=== PATIENT | female | born 1980 | race Two or more races ===

== ENCOUNTER 2018-04-16 19:02 | Emergency (ER) | payer BC, OTHER ==
--- NOTE | 2018-04-16 19:19 | Emergency Department Record ---
History of Present Illness - General Chief Complaint: Laceration(s) Stated Complaint: LAC RT WRIST Time Seen by Provider: 04/16/18 19:13 Source: Patient Mode of Arrival: Ambulatory Limitations: No limitations - History of Present Illness Initial Commments: 37 yo female presents with laceration to the ulnar side of the right wrist. She was washing dishes and a coffee cup broke lacerating the ulnar side of the wrist. No weakness, numbness or tingling. She is able to fully go through a ROM with the fingers. Tetanus is up to date. No visible FB. -: Minutes(s) (15) Extremity Location: Right: Wrist Place: Home Context: Accidental Associated Symptoms: None Treatments Prior to Arrival: Bandage - [place] Coma Scale Eye Response: (4) Open spontaneously Motor Response: (6) Obeys commands Verbal Response: (5) Oriented [place] Total: 15 - Related Data Hx Tetanus Toxoid Vaccination: Yes Year of Tetanus Vaccination: 2013 Home Medications Medication Instructions Recorded Confirmed Last Taken Alprazolam [Xanax] 0.5 mg PO Q8H PRN 04/16/18 04/16/18 Unknown Lorazepam [Ativan] 0.5 mg PO Q8H PRN 04/16/18 04/16/18 Unknown Previous Rx's Medication Instructions Recorded Cephalexin [Keflex] 500 mg PO TID #21 cap 04/16/18 Allergies Allergy/AdvReac Type Severity Reaction Status Date / Time Penicillins Allergy HIVES Verified 06/16/15 16:04 shrimp Allergy HIVES Verified 04/16/18 19:13 Review of Systems Constitutional: Denies: Chills, Fever, Malaise Eyes: Denies: Eye discharge ENT: Denies: Congestion, Throat pain Respiratory: Denies: Cough Cardiovascular: Denies: Chest pain, Palpitations, Syncope Endocrine: Denies: Fatigue Gastrointestinal: Denies: Abdominal pain, Diarrhea, Nausea, Vomiting Genitourinary: Denies: Dysuria Musculoskeletal: Denies: Arthralgia, Back pain, Joint swelling, Myalgia Skin: Reports: Other. Denies: Bruising, Change in color Neurological: Denies: Confusion, Headache Psychiatric: Denies: Anxiety Hematological/Lymphatic: Denies: Blood Clots, Easy bleeding, Easy bruising, Swollen glands Past Medical History - SOCIAL HISTORY Smoking Status: Never smoker - RESPIRATORY Hx Respiratory Disorders: No - CARDIOVASCULAR Hx Cardio Disorders: No - NEURO Hx Neuro Disorders: No - GI Hx GI Disorders: No - Hx Genitourinary Disorders: No - ENDOCRINE Hx Endocrine Disorders: No - MUSCULOSKELETAL Hx Musculoskeletal Disorders: No - PSYCH Hx Psych Problems: Yes Hx Depression: Yes - HEMATOLOGY/ONCOLOGY Hx Hematology/Oncology Disorders: Yes Hx Anemia: Yes Hx Cancer: (Pre cancerous cervical cells) Family Medical History Hx Heart Disease: Grandparents Hx Stroke: Grandparents Physical Exam - General General Appearance: Alert, Oriented x3, Cooperative, No acute distress Limitations: No limitations - Head Head exam: Atraumatic, Normal inspection - Eye Eye exam: Normal appearance, PERRL. negative: Conjunctival injection, Scleral icterus - ENT ENT exam: Normal exam Ear exam: Normal external inspection Nasal Exam: Normal inspection Mouth exam: Normal external inspection - Neck Neck exam: Normal inspection - Respiratory Respiratory exam: Normal lung sounds bilaterally. negative: Respiratory distress - Cardiovascular Cardiovascular Exam: Regular rate, Normal rhythm, Normal heart sounds Peripheral Pulses: 2+: Radial (R) - Extremities Extremities exam: Full ROM, Normal capillary refill. negative: Normal inspection, Tenderness Image of Hand: 1 - 2cm laceration, no visible FB, clean - Neurological Neurological exam: Alert, Oriented X3. negative: Motor sensory deficit - Psychiatric Psychiatric exam: Normal affect, Normal mood - Skin Skin exam: Dry, Intact, Normal color, Warm Course - Reevaluation(s) Reevaluation #1: Betadine Skin Prep Lidocaine with Epi 1% 3ml local NS irrigation Xray ordered to RO FB. 04/16/18 19:17 The XR was reviewed. No fracture. On one view there is a possible radio opaque thin small linear FB. The wound was copiously irrigated and searched. FB was easily seen and the FB was removed. It was a thin 2-3mm shard of the coffee mug This was explained in depth to the patient that a tiny retained FB can not be ruled out but the piece removed does correspond in size to the FB on XR 04/16/18 19:22 PROCEDURE 2cm Wrist laceration Betadine skin prep NS irrigation Inspection in a bloodless field No FB(after initial cleaning and FB removal) No visible tendon laceration Ethilon 4-0 suture 6 Sutures Placed The patient tolerated this well We discussed home care, reasons to return for a recheck and follow up suture removal. Disposition Disposition: Discharge Clinical Impression: Laceration of wrist Qualifiers: Encounter type: initial encounter Laterality: right Qualified Code(s): S61.511A - Laceration without foreign body of right wrist, initial encounter Disposition: Home, Self-Care Condition: (1) Good Instructions: Laceration (ED) Additional Instructions: Your stitches will need to be removed in 10 days in the ER or at your family doctor Return if you have pain, pus, redness, weakness, numbness or any new concerns Keep the laceration clean and dry. You may gently clean the area daily and then keep dry and clean. Prescriptions: Cephalexin [Keflex] 500 mg PO TID #21 cap Forms: Patient Portal Access Time of Disposition: 19:50 Quality - Quality Measures Quality Measures: N/A - Blood Pressure Screening Does Patient Have Any of the Following: No Blood Pressure Classification: Pre-Hypertensive BP Reading Systolic Measurement: 123 Diastolic Measurement: 71 Screening for High Blood Pressure: < Pre-Hypertensive BP, F/U Documented > [ [id number]] Pre-Hypertensive Follow-up Interventions: Referral to alternative/primary care provider.
--- NOTE | 2018-04-18 10:51 | RADIOLOGY REPORT ---
EXAM: RIGHT WRIST HISTORY: LACERATION RIGHT WRIST, SLICED HAND ON COFFEE MUG DOING DISHES. TECHNIQUE: Three views of the right wrist were obtained. Comparison: None. FINDINGS: No fracture or dislocation of the right wrist evident. Small benign appearing area of sclerosis in the distal radius. There is a focal soft tissue defect evident on the AP view in particular along the ulnar aspect of the wrist at the level of the distal end of the ulna. This apparently represents the site of the laceration. There is a short linear faint calcific like density seen in the adjacent soft tissues on this single view, but not clearly seen on the other two views. This may just be an artifact. There is no underlying ulnar cortical surface defect seen to indicate a small superficial fracture donor site. Also within the differential would simply be an artifact, or a very short linear calcific like foreign body. IMPRESSION: 1. SHORT LINEAR CALCIFIC LIKE DENSITY IN THE SOFT TISSUES ADJACENT TO THE ULNAR ASPECT OF THE DISTAL ULNA SEEN ONLY ON ONE VIEW, NONSPECIFIC DESCRIBED ABOVE. ADJACENT SOFT TISSUE LACERATION. 2. OTHERWISE, NO APPEARANCE TO SUGGEST A FRACTURE IN THE WRIST SEEN AND NO DISLOCATION IDENTIFIED. JOB NUMBER: [id number] [facility]
== END 2018-04-16 20:12 | disposition home or self-care (01) ==
LOC: ER 19:02
DX: S61.521A Laceration with foreign body of right wrist, initial encounter (principal); R55 Syncope and collapse; W25.XXXA Contact with sharp glass, initial encounter; Y93.G1 Activity, food preparation and clean up; Y92.000 Kitchen of unspecified non-institutional (private) residence as the place of occurrence of the external cause
CPT/HCPCS: 12041; 99283; 99284